=== PATIENT | female | born 1995 | race Hispanic/Latino ===

== ENCOUNTER 2020-06-18 16:52 | Day surgery (SDC) | payer OTHER ==
[2020-06-18 17:29] VITALS: BMI 34.3
[2020-06-18] MEDS ORDERED: Ondansetron ODT 4 MG TAB PO PRN (18:49)
[2020-06-18] MEDS ORDERED: Ondansetron PF 4 MG/2 ML Vial IVP PRN (18:49)
[2020-06-18] MEDS ORDERED: hydrALAZINE 20 MG/ML VIAL SLOW IVP PRN (18:49)
[2020-06-18] MEDS ORDERED: Lactated Ringer's 1,000 ML IV SCH (19:00)
[2020-06-18 20:13] LABS: #Monocytes 0.6 10x3/uL (0.0-1.1); #Neutrophils 7.3 10x3/uL (1.5-8.4); %Basophils 0.2 % (0.0-2.0); %Eosinophils 0.3 % (0.0-6.0); %Monocytes 6.8 % (0.0-10.0); %Neutrophils 77.2 % (40.0-75.0); Hemoglobin 11.4 g/dL (12.0-15.5); Mean Corpuscular HGB CONC 32.5 g/dL (32.0-36.0); Mean Corpuscular Hemoglobin 28.8 pg (27.0-33.0); Mean Corpuscular Volume 88.6 fl (81.6-98.3); Mean Platelet Volume 11.6 fl (7.4-10.4); Platelet Count 208 10x3/uL (150-450); RBC Distribution Width 13.8 % (11.5-14.5); Red Blood Cell (RBC) Count 3.96 10x6/uL (3.90-5.03); White Blood Cell (WBC) Count 9.4 10x3/uL (3.5-10.5)
[2020-06-18 20:25] LABS: ALT (SGPT) 13 U/L (8-55); AST (SGOT) 13 U/L (5-34); Albumin 3.4 g/dL (3.5-5.0); Alkaline Phosphatase 156 U/L (40-110); Anion Gap 15 mmol/L (10-20); BUN (Urea Nitrogen) 8 mg/dL (7.0-18.7); Bilirubin, Total 0.6 mg/dL (0.2-1.2); Calc. Creatinine Clearance 184 mL/min (70-130); Carbon Dioxide 20 mmol/L (22-29); Chloride 106 mmol/L (98-107); Glucose 72 mg/dL (70-105); Potassium 4.5 mmol/L (3.5-5.1); Protein, Total 6.4 g/dL (6.0-8.3); Sodium 136 mmol/L (136-145)
== END 2020-06-18 21:59 | disposition home or self-care (01) ==
LOC: CSHLD/OP 16:52
PROVIDERS: ATTEND Obstetrics & Gynecology
DX: O99.891 Other specified diseases and conditions complicating pregnancy (principal); R42 Dizziness and giddiness; O09.13 Supervision of pregnancy with history of ectopic pregnancy, third trimester; O09.293 Supervision of pregnancy with other poor reproductive or obstetric history, third trimester; Z3A.38 38 weeks gestation of pregnancy; Z86.16 Personal history of COVID-19
CPT/HCPCS: 36415; 80053; 85025; 96360; 99283

== ENCOUNTER 2020-06-21 10:12 | Outpatient (CLI) | payer MEDICAID ==
[2020-06-21 19:00] LABS: SARS-CoV-2 PCR by NAA Not Detected (NotDetected)
== END 2020-06-21 10:13 | disposition home or self-care (01) ==
LOC: CSHLAB 10:12
PROVIDERS: ATTEND Student in an Organized Health Care Education/Training Program
DX: Z20.822 Contact with and (suspected) exposure to COVID-19 (principal)
CPT/HCPCS: 87635; U0003; U0005

== ENCOUNTER 2020-06-21 10:40 | Day surgery (SDC) | payer OTHER, MEDICAID ==
[2020-06-21 11:06] VITALS: BMI 34.3
[2020-06-21] MEDS ORDERED: hydrALAZINE 20 MG/ML VIAL SLOW IVP PRN (13:11)
[2020-06-21] MEDS ORDERED: Mineral Oil ENEMA PR SCH (13:15)
== END 2020-06-21 16:13 | disposition home health service (06) ==
LOC: CSHLD/OP 10:40
PROVIDERS: ATTEND Obstetrics & Gynecology
DX: O26.853 Spotting complicating pregnancy, third trimester (principal); O99.891 Other specified diseases and conditions complicating pregnancy; R10.31 Right lower quadrant pain; R10.32 Left lower quadrant pain; N90.89 Other specified noninflammatory disorders of vulva and perineum; O99.013 Anemia complicating pregnancy, third trimester; D64.9 Anemia, unspecified; Z3A.39 39 weeks gestation of pregnancy
CPT/HCPCS: 99283

== ENCOUNTER 2020-06-22 02:01 | Inpatient (IN) | payer MEDICAID, OTHER ==
[2020-06-22] MEDS: Lactated Ringer's 1,000 ML IV SCH ×2 (02:35→22:25)
[2020-06-22] MEDS ORDERED: Misoprostol 200 MCG TAB PR PRN (02:41)
[2020-06-22] MEDS ORDERED: Methylergonovine 0.2 MG/ML VIAL IM PRN (02:41)
[2020-06-22] MEDS ORDERED: hydrALAZINE 20 MG/ML VIAL SLOW IVP PRN ×2 (02:41)
[2020-06-22] MEDS ORDERED: Carboprost 250 MCG/ML AMP IM PRN (02:41)
[2020-06-22] MEDS ORDERED: NS / Oxytocin 40 units/1000ml 1,000 ML IV PRN (02:41)
[2020-06-22] MEDS ORDERED: Lidocaine 1% (PF) 30 ML VIAL SC PRN (02:41)
[2020-06-22 02:45] VITALS: BMI 34.3
[2020-06-22] MEDS ORDERED: Fentanyl 4 mcg/Bup 0.1% Cadd 100 ML ONE (02:47)
[2020-06-22] MEDS ORDERED: NS w/ Oxytocin 30 units 500 ML IV PRN (02:49)
[2020-06-22 03:11] LABS: Hemoglobin 11.2 g/dL (12.0-15.5); Mean Corpuscular HGB CONC 32.9 g/dL (32.0-36.0); Mean Corpuscular Hemoglobin 28.4 pg (27.0-33.0); Mean Corpuscular Volume 86.3 fl (81.6-98.3); Mean Platelet Volume 11.7 fl (7.4-10.4); Platelet Count 199 10x3/uL (150-450); RBC Distribution Width 14.2 % (11.5-14.5); Red Blood Cell (RBC) Count 3.94 10x6/uL (3.90-5.03); White Blood Cell (WBC) Count 9.8 10x3/uL (3.5-10.5)
[2020-06-22 04:00] LABS: Hep B Surf Ag Non-Reactive S/CO (NonReactive); Syphilis Antibody Nonreactive (Nonreactive); Syphilis Antibody Index 0.02 S/CO (<1.00 Non-Reactive)
[2020-06-22 04:10] LABS: HBSAg Index 0.12 S/CO (0-0.99)
[2020-06-22] MEDS ORDERED: Naloxone HCl 0.4 mg/ml Vial IVP PRN ×2 (04:16)
[2020-06-22] MEDS ORDERED: Promethazine HCl 25 MG/ML VIAL IM PRN (04:16)
[2020-06-22] MEDS ORDERED: Hydrocerin (Eucerin) Cream 120 gm Jar TOP PRN (04:16)
[2020-06-22] MEDS ORDERED: Lactated Ringer's 500 ML IV PRN (04:16)
[2020-06-22] MEDS ORDERED: Ondansetron PF 4 MG/2 ML Vial IVP PRN (04:16)
[2020-06-22] MEDS ORDERED: ePHEDrine 50 MG/ML VIAL SLOW IVP PRN (04:16)
[2020-06-22] MEDS ORDERED: diphenhydrAMINE 50 MG/ML VIAL IVP PRN (04:16)
[2020-06-22] MEDS ORDERED: Fentanyl 4 mcg/Bupivacaine 0.1% Cassette 100 ML EPIDURAL SCH (04:30)
[2020-06-22] MEDS ORDERED: Communication Order-Pharmacy FS SCH (04:30)
[2020-06-22] MEDS ORDERED: Methylergonovine 0.2 MG/ML VIAL ONE (09:14)
[2020-06-22] MEDS ORDERED: Misoprostol 200 MCG TAB ONE (09:14)
[2020-06-22] MEDS ORDERED: Carboprost 250 MCG/ML AMP ONE (09:14)
[2020-06-22] MEDS ORDERED: Bisacodyl 10 MG SUPP PR PRN (09:36)
[2020-06-22] MEDS ORDERED: Milk Of Magnesia 30 ML UDCUP PO PRN (09:36)
[2020-06-22] MEDS ORDERED: Adacel (T-DAP) 0.5 ML SYRINGE IM ONE (09:36)
[2020-06-22] MEDS ORDERED: NS w/ Oxytocin 30 units 500 ML IVPB SCH (10:15)
[2020-06-22] MEDS: Ibuprofen 800 MG TAB PO SCH ×2 (13:15→21:28)
[2020-06-22] MEDS: Ferrous Sulfate 325 MG TAB PO SCH (21:25)
[2020-06-22] MEDS: Docusate Calcium (SURFAK) 240 MG CAP PO SCH (21:28)
[2020-06-23] MEDS: Ibuprofen 800 MG TAB PO SCH ×3 (05:14→20:27)
[2020-06-23] MEDS: Ferrous Sulfate 325 MG TAB PO SCH ×2 (07:35→15:59)
[2020-06-23] MEDS: Docusate Calcium (SURFAK) 240 MG CAP PO SCH ×2 (07:59→20:27)
[2020-06-23] MEDS: Prenatal Vitamin 1 TAB PO SCH (07:59)
[2020-06-23] MEDS: Acetaminophen 325 MG TAB PO PRN ×2 (08:04→17:26)
[2020-06-23] MEDS ORDERED: Bupivacaine 0.25% HCL 30 ML VIAL ONE (19:49)
[2020-06-24] MEDS: Acetaminophen 325 MG TAB PO PRN ×2 (02:46→09:40)
[2020-06-24] MEDS: Ibuprofen 800 MG TAB PO SCH ×2 (05:42→14:22)
[2020-06-24 07:40] VITALS: BP 92/50; TEMP 98.6
[2020-06-24] MEDS: Ferrous Sulfate 325 MG TAB PO SCH (07:46)
[2020-06-24] MEDS: Docusate Calcium (SURFAK) 240 MG CAP PO SCH (09:40)
[2020-06-24] MEDS: Prenatal Vitamin 1 TAB PO SCH (09:40)
== END 2020-06-24 14:40 | disposition home or self-care (01) | DRG 807 ==
LOC: CSHLD/OP 02:01 → CSHLD 03:14 → CSHPED 14:50
PROVIDERS: ADMIT Obstetrics & Gynecology; ATTEND Obstetrics & Gynecology
PROC: 10E0XZZ Delivery of Products of Conception, External Approach (ICD-10-PCS; principal; 2020-06-22)
PROC: 10907ZC Drainage of Amniotic Fluid, Therapeutic from Products of Conception, Via Natural or Artificial Opening (ICD-10-PCS; 2020-06-22)
DX: O99.02 Anemia complicating childbirth (principal); Z37.0 Single live birth; D64.9 Anemia, unspecified; Z3A.39 39 weeks gestation of pregnancy; Z86.16 Personal history of COVID-19; O75.89 Other specified complications of labor and delivery; O71.82 Other specified trauma to perineum and vulva; O62.2 Other uterine inertia
CPT/HCPCS: 36415; 51702; 85027; 86780; 86850; 86900; 86901; 87340; 87635; J2210; J2590; S0020; U0003; U0005

== ENCOUNTER 2024-11-12 16:13 | Emergency (ER) | payer OTHER ==
[2024-11-12 18:25] LABS: BHCG - Serum Negative (NEGATIVE); Pregs Control Background? CLEAR/WHITE (CLR/WHITE); Pregs Control Bar Appear? YES (CONTROL BAR)
[2024-11-12 18:27] LABS: #Basophils Less than 0.03 10x3/uL (0.0-0.2); #Eosinophils 0.07 10x3/uL (0.0-0.5); #Monocytes 0.47 10x3/uL (0.0-1.1); #Neutrophils 3.22 10x3/uL (1.5-8.4); %Basophils 0.2 % (0.0-2.0); %Eosinophils 1.4 % (0.0-6.0); %Lymphocytes 23.5 % (18.0-47.0); %Monocytes 9.5 % (0.0-10.0); %Neutrophils 65.2 % (40.0-75.0); Hematocrit 34.9 % (34.9-44.5); Hemoglobin 10.7 g/dL (12.0-15.5); Mean Corpuscular Hemoglobin 26.0 pg (27.0-33.0); Mean Corpuscular Volume 84.7 fL (81.6-98.3); Platelet Count 205 10x3/uL (150-450); Red Blood Cell (RBC) Count 4.12 10x6/uL (3.90-5.03); White Blood Cell (WBC) Count 4.94 10x3/uL (3.5-10.5)
[2024-11-12 18:31] LABS: ALT (SGPT) 10 U/L (Less than 34); AST (SGOT) 22 U/L (11-34); Albumin 4.2 g/dL (3.1-4.5); Alkaline Phosphatase 50 U/L (40-110); Anion Gap 8 mmol/L (10-20); BUN (Urea Nitrogen) 16 mg/dL (7.0-18.7); Bilirubin, Total 1.2 mg/dL (0.3-1.2); Calc. Creatinine Clearance 0 mL/min (70-130); Calcium 9.0 mg/dL (7.8-10.44); Carbon Dioxide 26 mmol/L (22-29); Chloride 109 mmol/L (98-107); Globulin 2.8 g/dL (2.4-3.5); Glucose 81 mg/dL (70-105); Lipase 67 U/L (8-78); Potassium 4.0 mmol/L (3.5-5.1); Sodium 139 mmol/L (136-145)
[2024-11-12 18:39] LABS: Glucose, Urine (Dipstick) Normal (Negative); Leukocyte 500 (Negative); Protein, Urine (Dipstick) Negative (Neg-Trace); Specific Gravity, Urine 1.010 (1.005-1.030)
[2024-11-12 18:48] LABS: Bacteria/HPF 1+ HPF (None Seen); CAUTI Indications for Culture Dysuria,urgency,freq; RBC/HPF 0-3 HPF (0-3); Urine Culture Reflex No No
== END 2024-11-12 20:30 | disposition home or self-care (01) ==
LOC: CSHERS 16:13
DX: N39.0 Urinary tract infection, site not specified (principal)
CPT/HCPCS: 36415; 71045; 80053; 81001; 83690; 84703; 85025; 85379